=== PATIENT | female | born 1990 ===

== ENCOUNTER 2024-02-09 19:02 | Outpatient (REF) | payer OTHER, SELFPAY ==
[2024-02-11 16:10] LABS: Candida species Positive (Negative); Gardnerella vaginalis Negative (Negative); Trichomonas vaginalis Negative (Negative)
== END 2024-02-09 19:03 | disposition home or self-care (01) ==
LOC: LAB 19:02
PROVIDERS: Visit Provider Nurse Practitioner
DX: N89.8 Other specified noninflammatory disorders of vagina (principal)
CPT/HCPCS: 81050; 84156; 84166; 87480; 87491; 87510; 87591; 87660